=== PATIENT | female | born 1965 | race Caucasian/White ===

== ENCOUNTER 2016-08-10 17:03 | Emergency (ER) | payer OTHER ==
[~2016-08-10] VITALS: Ht 175.3 cm; Wt 81.6 kg
[2016-08-10] MEDS ORDERED: ESCITALOPRAM OX20 MG PO (17:27)
[2016-08-10] MEDS ORDERED: LORAZEPAM1 M1 PO (17:27)
[2016-08-10] MEDS ORDERED: BUPROPION XL150 MG PO (17:28)
[2016-08-10] MEDS ORDERED: LUTEIN40 MG PO (17:28)
[2016-08-10] MEDS ORDERED: VITAMIN C1000 M2 PO (17:28)
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
[2016-08-10] MEDS ORDERED: KETOROLAC TROME10 M1 PO (18:47)
[2016-08-10] MEDS ORDERED: ZOFRAN4 M2 PO (18:47)
[2016-08-10 18:53] VITALS: BP 127/79
== END 2016-08-10 18:57 ==
LOC: ERH 17:03
DX: S06.0X1A Concussion with loss of consciousness of 30 minutes or less, initial encounter (principal); W22.8XXA Striking against or struck by other objects, initial encounter; Y92.9 Unspecified place or not applicable; Y93.9 Activity, unspecified
CPT/HCPCS: 96372; J1885; J3101